=== PATIENT | male | born 1955 | race Caucasian/White ===

== ENCOUNTER → 2017-08-01 | Outpatient (CLI) | payer BC | END | disposition home or self-care (01) | LOC: RAD 17:03 | PROVIDERS: ATTEND Nurse Practitioner Family | DX: R05 Cough (principal) | CPT/HCPCS: 71020 ==

== ENCOUNTER → 2018-08-01 | Outpatient (CLI) | payer BC | END | disposition home or self-care (01) | LOC: CFH 09:45 | PROVIDERS: ATTEND Nurse Practitioner | DX: I34.0 Nonrheumatic mitral (valve) insufficiency (principal); I34.1 Nonrheumatic mitral (valve) prolapse; I10 Essential (primary) hypertension; E78.5 Hyperlipidemia, unspecified | CPT/HCPCS: 93306 ==

== ENCOUNTER 2018-10-16 08:37 | Day surgery (SDC) | payer BC ==
[~2018-10-16] VITALS: Ht 177.8 cm; Wt 97.0 kg
[2018-10-16 09:27] VITALS: BP 113/63
[2018-10-16] MEDS ORDERED: SODIUM CHLORIDE 0.9% 1,000 ML IV ONE (09:30)
[2018-10-16] MEDS ORDERED: PLEASE ENTER HEIGHT AND WEIGHT MC SCH (09:30)
[2018-10-16] MEDS ORDERED: PLEASE ENTER ALLERGIES MC SCH (09:30)
[2018-10-16] MEDS ORDERED: JENTADUETO (09:41)
[2018-10-16] MEDS ORDERED: EZET1TAB35 PO (09:42)
[2018-10-16] MEDS ORDERED: OMEP-110 PO (09:43)
[2018-10-16] MEDS ORDERED: METO200T47 PO (09:44)
[2018-10-16] MEDS ORDERED: IRBE1TAB13 PO (09:47)
[2018-10-16] MEDS ORDERED: COLE500G2 PO (09:49)
[2018-10-16] MEDS ORDERED: CLON0.5T20 PO (09:51)
[2018-10-16] MEDS ORDERED: ALLO300T PO (09:51)
[2018-10-16] MEDS ORDERED: SERT50TA28 PO (09:52)
[2018-10-16] MEDS ORDERED: ASPI-496 PO (09:53)
[2018-10-16] MEDS ORDERED: PROPOFOL 10 MG/ML, 20ML ONE (10:02)
== END 2018-10-16 11:21 | disposition home or self-care (01) ==
LOC: CACL 08:37
PROVIDERS: ATTEND Internal Medicine Cardiovascular Disease
DX: I34.1 Nonrheumatic mitral (valve) prolapse (principal); I36.1 Nonrheumatic tricuspid (valve) insufficiency; I34.0 Nonrheumatic mitral (valve) insufficiency; I10 Essential (primary) hypertension; Z90.49 Acquired absence of other specified parts of digestive tract; Z88.8 Allergy status to other drugs, medicaments and biological substances; Z91.018 Allergy to other foods; Z79.82 Long term (current) use of aspirin
CPT/HCPCS: 93312; 93325; J2704

== ENCOUNTER 2019-01-10 09:24 | Day surgery (SDC) | payer BC ==
[2019-01-07 09:36] VITALS: BP 142/86
[2019-01-07 10:00] LABS: BASOPHILS # (AUTO) 0.03 x10^3/uL (0-0.1); BASOPHILS % (AUTO) 0 % (0-1); EOSINOPHILS # (AUTO) 0.26 x10^3/uL (0-0.4); EOSINOPHILS % (AUTO) 4 % (1-7); LYMPHOCYTES # (AUTO) 1.08 x10^3/uL (1-3.4); LYMPHOCYTES % (AUTO) 18 % (22-44); MD NO; MEAN CORPUSCULAR HEMOGLOBIN 30.1 pg (27.5-34.5); MEAN CORPUSCULAR HGB CONC 34.1 g/dL (33.2-36.2); MEAN CORPUSCULAR VOLUME 88.4 fL (81-97); MEAN PLATELET VOLUME 8.7 fL (7.4-10.4); MONOCYTES # (AUTO) 0.52 x10^3/uL (0.2-0.8); MONOCYTES % (AUTO) 9 % (2-9); NEUTROPHILS % (AUTO) 69 % (42-75); PLATELET COUNT 156 x10^3/uL (130-400); RED BLOOD COUNT 5.44 x10^6/uL (4.38-5.82); RED CELL DISTRIBUTION WIDTH 12.9 % (9.4-14.8)
[2019-01-07 10:11] LABS: ANION GAP 3 mmol/L (5-15); CALCIUM 9.3 mg/dL (8.5-10.1); CHLORIDE 103 mmol/L (98-107); CREATININE 1.04 mg/dL (0.7-1.3)
[~2019-01-10] VITALS: Ht 175.3 cm; Wt 93.2 kg
[~2019-01-10 09:24] MED LIST: ALLO300T PO; ASPI-496 PO; CLON0.5T20 PO; COLE500G2 PO; EZET1TAB35 PO; IRBE1TAB13 PO; JENTADUETO; METO200T47 PO; OMEP-110 PO; SERT50TA28 PO; SITA1TAB5 PO
[2019-01-10] MEDS ORDERED: CLON0.5T11 PO (10:00)
[2019-01-10] MEDS ORDERED: OMEG1CAP24 PO (10:00)
[2019-01-10] MEDS ORDERED: HYDROCHLOROTH12.5 MG PO (10:00)
[2019-01-10] MEDS ORDERED: ASPI81TA45 PO (10:00)
[2019-01-10] MEDS ORDERED: COLE1TAB2 PO (10:03)
[2019-01-10] MEDS ORDERED: ENAL20TA PO (10:03)
[2019-01-10] MEDS ORDERED: TICAGRELOR 90 MG TABLET ONE (10:43)
[2019-01-10] MEDS ORDERED: FENTANYL PF 100 MCG/2ML ONE (10:43)
[2019-01-10] MEDS ORDERED: MIDAZOLAM 1 MG/ML, 5ML ONE (10:43)
[2019-01-10] MEDS ORDERED: HEPARIN 1,000 UNITS/ML, 10ML ONE (10:44)
[2019-01-10] MEDS ORDERED: BIVALIRUDIN 250 MG ONE (10:44)
[2019-01-10] MEDS ORDERED: VERAPAMIL 2.5 MG/ML, 2ML ONE (10:44)
[2019-01-10] MEDS ORDERED: LIDOCAINE-MPF 1%, 5ML ONE (10:44)
[2019-01-10] MEDS ORDERED: SODIUM CHLORIDE 0.9% 1,000 ML IV SCH (11:22)
[2019-01-10] MEDS ORDERED: ACETAMINOPHEN 325 MG TABLET PO PRN (11:30)
== END 2019-01-10 14:05 | disposition home or self-care (01) ==
LOC: CACL 09:24
PROVIDERS: ATTEND Internal Medicine Cardiovascular Disease
DX: I25.10 Atherosclerotic heart disease of native coronary artery without angina pectoris (principal); I10 Essential (primary) hypertension; I34.1 Nonrheumatic mitral (valve) prolapse; E78.5 Hyperlipidemia, unspecified; Z79.82 Long term (current) use of aspirin; Z98.890 Other specified postprocedural states
CPT/HCPCS: 36415; 80048; 85025; 93458; 99156; C1769; C1894; J1644; J2250; J3010; Q9967; J0583

== ENCOUNTER 2019-03-31 10:48 | Inpatient (IN) | payer BC ==
[~2019-03-31] VITALS: Ht 177.8 cm; Wt 97.8 kg
[2019-04-06 12:52] VITALS: BP 113/68
== END 2019-04-06 14:30 | disposition home or self-care (01) | DRG 221 ==
LOC: 5SO 04-01 04:16 → CSU 04-01 08:14 → 5SO 04-02 18:42
PROVIDERS: ADMIT Thoracic Surgery (Cardiothoracic Vascular Surgery); ATTEND Thoracic Surgery (Cardiothoracic Vascular Surgery)
PROC: 02UG0JZ Supplement Mitral Valve with Synthetic Substitute, Open Approach (ICD-10-PCS; principal; 2019-04-01)
PROC: B24BZZ4 Ultrasonography of Heart with Aorta, Transesophageal (ICD-10-PCS; 2019-04-01)
PROC: 30233R1 Transfusion of Nonautologous Platelets into Peripheral Vein, Percutaneous Approach (ICD-10-PCS; 2019-04-01)
PROC: 30233N1 Transfusion of Nonautologous Red Blood Cells into Peripheral Vein, Percutaneous Approach (ICD-10-PCS; 2019-04-01)
PROC: 5A1221Z Performance of Cardiac Output, Continuous (ICD-10-PCS; 2019-04-01)
PROC: 03HY32Z Insertion of Monitoring Device into Upper Artery, Percutaneous Approach (ICD-10-PCS; 2019-04-01)
DX: I34.0 Nonrheumatic mitral (valve) insufficiency (principal); E11.9 Type 2 diabetes mellitus without complications; E78.5 Hyperlipidemia, unspecified; E87.6 Hypokalemia; E87.70 Fluid overload, unspecified; F17.200 Nicotine dependence, unspecified, uncomplicated; F41.9 Anxiety disorder, unspecified; I11.9 Hypertensive heart disease without heart failure; I25.10 Atherosclerotic heart disease of native coronary artery without angina pectoris; Z91.018 Allergy to other foods; I44.0 Atrioventricular block, first degree; I77.1 Stricture of artery; K21.9 Gastro-esophageal reflux disease without esophagitis
CPT/HCPCS: 36415; 36600; J3490; S0017; 71045; 71046; 80048; 80053; 81003; 82040; 82330; 82800; 82803; 82810; 82947; 82962; 83036; 83735; 84132; 84295; 85014; 85018; 85025; 85049; 85347; 85610; 85730; 86850; 86900; 86923; 87081; 88305; 93005; 93312; 93321; 93325; 93880; 94002; G0378; J0171; J0697; J1644; J1815; J1940; J2250; J2405; J2704; J3010; J3370; J3475; J3480; J7189; P9045; P9047; C1751; C1760; J0780; J2270; J2370; J7050; J7120; P9012; P9035